=== PATIENT | female | born 1965 | race African-American/Black ===

== ENCOUNTER 2016-12-19 12:43 | Emergency (ER) | payer MEDICAID ==
[~2016-12-19] VITALS: Ht 160 cm; Wt 81.6 kg
[2016-12-19 12:52] VITALS: BP_SYST 136
[2016-12-19 15:16] LABS: MEAN CORPUSCULAR HEMOGLOBIN 29 pg (27-31); MONOCYTES # (AUTO) 0.6 K/uL (0.0-1.0)
[2016-12-19 15:23] LABS: BILIRUBIN,URINE NEGATIVE (NEGATIVE); BLOOD, URINE NEGATIVE (NEGATIVE); CLARITY/URINE CLEAR (CLEAR); COLOR,URINE YELLOW (YELLOW); GLUCOSE,URINE NEGATIVE (NEGATIVE); KETONES,URINE TRACE (NEGATIVE); LEUKOCYTE ESTERASE ,URINE NEGATIVE (NEGATIVE); NITRITE, URINE NEGATIVE (NEGATIVE); PROTEIN URINE NEGATIVE (NEGATIVE); UROBILINOGEN,URINE 0.2 (0.2-1.0)
[2016-12-19 15:26] LABS: BASOPHILS % (AUTO) 0.5 % (0.0-2.0); EOSINOPHILS # (AUTO) 0.1 K/uL (0.0-0.4); EOSINOPHILS % (AUTO) 0.6 % (0.0-4.0); HEMATOCRIT 40.4 % (36-48); HEMOGLOBIN 13.6 g/dL (12.0-16.0); LYMPHOCYTES # (AUTO) 1.9 K/uL (1.0-5.5); LYMPHOCYTES % (AUTO) 22.7 % (20.5-51.5); MEAN CORPUSCULAR HGB CONC 34 % (32-36); MEAN CORPUSCULAR VOLUME 86 fL (79.0-98.0); MONOCYTES % (AUTO) 7.6 % (1.7-9.3); NEUTROPHILS # (AUTO) 5.8 K/uL (1.8-7.7); NEUTROPHILS % (AUTO) 68.6 % (40.0-70.0); PLATELET COUNT (AUTO) 359 K/uL (130-430); RED BLOOD CELL COUNT(AUTO) 4.71 MIL/uL (4.2-6.2); RED CELL DISTRIBUTION WIDTH 12.6 % (9.0-15.0); WHITE BLOOD COUNT (AUTO) 8.4 K/uL (4.8-10.8)
[2016-12-19 15:41] LABS: CREATININE 0.84 mg/dL (0.55-1.30); POTASSIUM 3.3 mmol/L (3.5-5.1)
[2016-12-19 15:46] LABS: ALBUMIN 3.8 g/dL (3.4-4.8); TOTAL BILIRUBIN 0.3 mg/dL (0.0-1.0)
[2016-12-19 16:23] VITALS: BP_SYST 132
== END 2016-12-19 16:23 | disposition home or self-care (01) ==
LOC: SED 12:43
DX: H93.13 Tinnitus, bilateral (principal); R06.00 Dyspnea, unspecified
CPT/HCPCS: 36415; 71010; 80053; 81003; 83690-TC; 83880; 84484; 85025; 93005; 99285

== ENCOUNTER 2017-06-22 12:51 | Emergency (ER) | payer MEDICAID ==
[~2017-06-22] VITALS: Ht 157.5 cm; Wt 83.9 kg
[2017-06-22 13:21] VITALS: BP_SYST 135
[2017-06-22] MEDS ORDERED: NACL 0.9% 1,000 ML IV ONE (13:32)
[2017-06-22] MEDS ORDERED: MORPHINE 4 MG/ML INJ. SYRINGE IVP ONE (13:45)
[2017-06-22] MEDS ORDERED: ONDANSETRON HCL 4 MG/2 ML VIAL IVP ONE (13:45)
[2017-06-22 14:19] LABS: BASOPHILS % (AUTO) 0.2 % (0.0-2.0); EOSINOPHILS % (AUTO) 0.7 % (0.0-4.0); HEMATOCRIT 41.7 % (36-48); HEMOGLOBIN 13.3 g/dL (12.0-16.0); LYMPHOCYTES # (AUTO) 1.9 K/uL (1.0-5.5); MEAN CORPUSCULAR HEMOGLOBIN 27 pg (27-31); MEAN CORPUSCULAR HGB CONC 32 % (32-36); MEAN CORPUSCULAR VOLUME 85 fL (79.0-98.0); MONOCYTES # (AUTO) 0.4 K/uL (0.0-1.0); MONOCYTES % (AUTO) 6.9 % (1.7-9.3); NEUTROPHILS # (AUTO) 4.1 K/uL (1.8-7.7); NEUTROPHILS % (AUTO) 62.2 % (40.0-70.0); PLATELET COUNT (AUTO) 380 K/uL (130-430); RED CELL DISTRIBUTION WIDTH 12.5 % (9.0-15.0); WHITE BLOOD COUNT (AUTO) 6.4 K/uL (4.8-10.8)
[2017-06-22 14:20] LABS: BILIRUBIN,URINE NEGATIVE (NEGATIVE); BLOOD, URINE NEGATIVE (NEGATIVE); CLARITY/URINE CLEAR (CLEAR); COLOR,URINE YELLOW (YELLOW); GLUCOSE,URINE NEGATIVE (NEGATIVE); KETONES,URINE TRACE (NEGATIVE); LEUKOCYTE ESTERASE ,URINE NEGATIVE (NEGATIVE); NITRITE, URINE NEGATIVE (NEGATIVE); PH,URINE 5.5 (5.0-8.0); PROTEIN URINE NEGATIVE (NEGATIVE); UROBILINOGEN,URINE 0.2 (0.2-1.0)
[2017-06-22 14:24] LABS: CALCIUM 9.9 mg/dL (8.4-11.0); CREATININE 0.95 mg/dL (0.55-1.30); POTASSIUM 3.7 mmol/L (3.5-5.1)
[2017-06-22 14:26] LABS: PROTHROMBIN TIME 10.4 SECS (9.5-12.5)
[2017-06-22 14:29] LABS: TOTAL BILIRUBIN 0.5 mg/dL (0.0-1.0)
[2017-06-22 15:55] VITALS: BP_SYST 110
== END 2017-06-22 15:55 | disposition home or self-care (01) ==
LOC: SED 12:51
DX: K52.9 Noninfective gastroenteritis and colitis, unspecified (principal); R03.0 Elevated blood-pressure reading, without diagnosis of hypertension; Z90.710 Acquired absence of both cervix and uterus
CPT/HCPCS: 36415; 71045; 74176; 80053; 81003; 82150; 82550; 83690; 84484; 85025; 85610; 85730; 93005; 99285; J2405; J7030; J2270

== ENCOUNTER 2018-04-14 14:18 | Emergency (ER) | payer MEDICAID ==
[~2018-04-14] VITALS: Ht 157.5 cm; Wt 72.6 kg
--- NOTE | 2018-04-14 14:20 | NUR ---
Patient to ER bed 5 to gown for evaluation. Side rails up. Report given to LAURA Peng.
[2018-04-14 14:25] VITALS: BP_SYST 134
--- NOTE | 2018-04-14 14:25 | NUR ---
ER provider BROWN at bedside examining patient.
--- NOTE | 2018-04-14 14:27 | NUR ---
patient arrived AOx4 from a sleding trip with family. patients c/o falling off the sled today, hitting 5th, 4th finger on the ground. patient has swelling and 3 abrasions to the right hand. patient can move all fingers and tolerable discomfort with +2 pulses to all fingers bilaterally and less than 3 second caprefil. patient has not had a Tdap recently. no other complaint or injury at this time.
[2018-04-14] MEDS ORDERED: BACITRACIN 1 GM OINT TP ONE (14:30)
[2018-04-14] MEDS ORDERED: DIPH-TET-PERTUS Vaccine 0.5 ML VIAL (ADACEL) I.M. ONE (14:45)
[2018-04-14 15:13] VITALS: BP_SYST 118
--- NOTE | 2018-04-14 15:13 | NUR ---
Patient given written and verbal discharge instructions and verbalizes understanding. ER MD discussed with patient the results and treatment provided. Patient in stable condition. ID arm band removed. Rx of Bacitracin given. Patient educated on pain management and to follow up with PMD. Pain Scale 0/10. Opportunity for questions provided and answered. Medication side effect fact sheet provided.
== END 2018-04-14 15:13 | disposition home or self-care (01) ==
LOC: SED 14:18
DX: S60.221A Contusion of right hand, initial encounter (principal); Z85.3 Personal history of malignant neoplasm of breast; W18.09XA Striking against other object with subsequent fall, initial encounter; Y93.89 Activity, other specified; Y92.89 Other specified places as the place of occurrence of the external cause; Y99.8 Other external cause status
CPT/HCPCS: 90715; 99283

== ENCOUNTER 2018-04-23 08:34 | Emergency (ER) | payer MEDICAID ==
[~2018-04-23] VITALS: Ht 157.5 cm; Wt 75.7 kg
[2018-04-23 08:54] VITALS: BP_SYST 122
== END 2018-04-23 10:30 | disposition left against medical advice (07) ==
LOC: SED 08:34
DX: M79.641 Pain in right hand (principal); Z53.21 Procedure and treatment not carried out due to patient leaving prior to being seen by health care provider
CPT/HCPCS: 99281